=== PATIENT | female | born 1980 | race Caucasian/White ===

== ENCOUNTER 2018-03-01 15:45 | Inpatient (IN) | payer BC, OTHER ==
[2018-03-01 17:50] LABS: Basophils # (A) 0.1 k/uL (0-0.2); Basophils % (A) 0 %; Eosinophils # (A) 0.1 k/uL (0-0.7); Eosinophils % (A) 1 %; HCT 43.7 % (34.0-46.0); Lymphocytes % (A) 14 %; MCH 27.6 pg (25.0-35.0); MCHC 32.1 g/dL (31.0-37.0); Mean Platelet Volume 9.9; Monocytes # (A) 0.7 k/uL (0-1.0); Monocytes % (A) 5 %; Neutrophils # (A) 11.1 k/uL (1.3-7.7); Neutrophils % (A) 79 %; Platelet Count 265 k/uL (150-450); RBC 5.08 m/uL (3.80-5.40); RDW 12.6 % (11.5-15.5); WBC 14.1 k/uL (3.8-10.6)
[2018-03-01 17:59] LABS: ALT 19 U/L (9-52); AST 32 U/L (14-36); Alkaline Phosphatase 67 U/L (38-126); Amylase 55 U/L (30-110); Anion Gap 15 mmol/L; Blood Urea Nitrogen 14 mg/dL (7-17); Calcium 10.7 mg/dL (8.4-10.2); Carbon Dioxide 29 mmol/L (22-30); Chloride 101 mmol/L (98-107); Glucose 108 mg/dL (74-99); Lipase 119 U/L (23-300); Sodium 145 mmol/L (137-145); Total Bilirubin 1.2 mg/dL (0.2-1.3); Total Protein 8.8 g/dL (6.3-8.2)
--- NOTE | 2018-03-01 18:02 | ED ---
Abdominal Pain HPI - General Chief Complaint: Abdominal Pain Stated Complaint: vomiting,abd pain Time Seen by Provider: 03/01/18 16:59 Source: patient, RN notes reviewed, old records reviewed Mode of arrival: ambulatory Limitations: no limitations - History of Present Illness Initial Comments: 37-year-old female presents emergency department today with chief complaint of nausea, and mid abdominal pain for the past 2 days. She has a past medical history including cholecystectomy, appendectomy, hysterectomy. She reports that she had her hysterectomy there was a complication during the surgery where they had cut her aorta. She subsequently had them aorta repair. She reports this happened 17 years ago. She has mid abdominal pain and feels somewhat distended. She did report she was passing gas today. She denies any chest pain or shortness of breath. Patient's surgeon for her appendectomy and cholecystectomy with Dr. Vazquez. - Related Data Home Medications Medication Instructions Recorded Confirmed Clopidogrel Bisulfate [Plavix] 75 mg PO DAILY 03/01/18 03/01/18 Desvenlafaxine [Pristiq ER] 100 mg PO DAILY 03/01/18 03/01/18 Doxycycline Hyclate [Vibramycin] 100 mg PO BID 03/01/18 03/01/18 Esomeprazole Magnesium [NexIUM 20 mg PO DAILY 03/01/18 03/01/18 24Hr] Fexofenadine HCl [Stephanie Allergy] 180 mg PO DAILY 03/01/18 03/01/18 Ibuprofen [Motrin] 400 mg PO TID PRN 03/01/18 03/01/18 Lovastatin [Mevacor] 20 mg PO HS 03/01/18 03/01/18 busPIRone HCL 15 mg PO DAILY 03/01/18 03/01/18 Allergies Allergy/AdvReac Type Severity Reaction Status Date / Time latex Allergy Mild Rash/Hives Verified 03/01/18 17:08 Penicillins Allergy Anaphylaxis Verified 03/01/18 17:08 Sulfa (Sulfonamide Allergy Anaphylaxis Verified 03/01/18 17:08 Antibiotics) Review of Systems ROS Statement: Those systems with pertinent positive or pertinent negative responses have been documented in the HPI. ROS Other: All systems not noted in ROS Statement are negative. Past Medical History Past Medical History: Hyperlipidemia Additional Past Medical History / Comment(s): PANIC ATTACKS, migraine History of Any Multi-Drug Resistant Organisms: None Reported Past Surgical History: Appendectomy, Cholecystectomy, Hysterectomy Past Psychological History: Anxiety, Panic Disorder Smoking Status: Current every day smoker Past Alcohol Use History: Occasional Past Drug Use History: None Reported General Exam - General Exam Comments Initial Comments: Pleasant 37-year-old female. Limitations: no limitations General appearance: alert, in no apparent distress Head exam: Present: atraumatic, normocephalic, normal inspection Eye exam: Present: normal appearance, PERRL, EOMI. Absent: scleral icterus, conjunctival injection, periorbital swelling ENT exam: Present: normal exam, mucous membranes moist Neck exam: Present: normal inspection. Absent: tenderness, meningismus, lymphadenopathy Respiratory exam: Present: normal lung sounds bilaterally. Absent: respiratory distress, wheezes, rales, rhonchi, stridor Cardiovascular Exam: Present: regular rate, normal rhythm, normal heart sounds. Absent: systolic murmur, diastolic murmur, rubs, gallop, clicks GI/Abdominal exam: Present: soft, tenderness (Mid umbilical tenderness. Evidence of scarring over the abdomen.), normal bowel sounds. Absent: distended , guarding, rebound, rigid Extremities exam: Present: normal inspection, full ROM, normal capillary refill. Absent: tenderness, pedal edema, joint swelling, calf tenderness Back exam: Present: normal inspection Neurological exam: Present: alert, oriented X3, CN II-XII intact Psychiatric exam: Present: normal affect Course Vital Signs 03/01/18 03/01/18 16:20 18:36 Temperature 97.9 F Pulse Rate 116 H 89 Respiratory 20 16 Rate Blood Pressure 128/88 126/71 O2 Sat by Pulse 98 100 Oximetry Medical Decision Making - Medical Decision Making 37-year-old female presents emergency Department chief complaint of vomiting and mid abdominal pain. Multiple surgeries including appendectomy, cholecystectomy, hysterectomy. At this time Patient has evidence of leukocytosis. Blood cell count is 14,000. Patient was started on IV fluids given pain medication. CT on pelvis was completed. There is evidence of a dilated stomach and proximal small bowel consistent with mechanical small bowel instruction. She has no active vomiting any E. Likely related to adhesions from patient's multiple surgeries. Again her previous surgeon Dr. Vazquez. At this time Will admit the Patient for IV fluids, keeping her nothing by mouth. Case discussed with Dr. Jesus who accepted the admission. - Lab Data Result diagrams: 03/01/18 17:16 03/01/18 17:16 Lab Results 03/01/18 03/01/18 03/01/18 Range/Units 17:16 17:16 17:16 WBC 14.1 H (3.8-10.6) k/uL RBC 5.08 (3.80-5.40) m/uL Hgb 14.0 (11.4-16.0) gm/dL Hct 43.7 (34.0-46.0) % MCV 86.0 (80.0-100.0) fL MCH 27.6 (25.0-35.0) pg MCHC 32.1 (31.0-37.0) g/dL RDW 12.6 (11.5-15.5) % Plt Count 265 (150-450) k/uL Neutrophils % 79 % Lymphocytes % 14 % Monocytes % 5 % Eosinophils % 1 % Basophils % 0 % Neutrophils # 11.1 H (1.3-7.7) k/uL Lymphocytes # 2.0 (1.0-4.8) k/uL Monocytes # 0.7 (0-1.0) k/uL Eosinophils # 0.1 (0-0.7) k/uL Basophils # 0.1 (0-0.2) k/uL PT 10.4 (9.0-12.0) sec INR 1.1 (<1.2) APTT 26.8 (22.0-30.0) sec Sodium 145 (137-145) mmol/L Potassium 5.0 (3.5-5.1) mmol/L Chloride 101 (98-107) mmol/L Carbon Dioxide 29 (22-30) mmol/L Anion Gap 15 mmol/L BUN 14 (7-17) mg/dL Creatinine 0.76 (0.52-1.04) mg/dL Est GFR (CKD-EPI)AfAm >90 (>60 ml/min/1.73 sqM) Est GFR (CKD-EPI)NonAf >90 (>60 ml/min/1.73 sqM) Glucose 108 H (74-99) mg/dL Calcium 10.7 H (8.4-10.2) mg/dL Total Bilirubin 1.2 (0.2-1.3) mg/dL AST 32 (14-36) U/L ALT 19 (9-52) U/L Alkaline Phosphatase 67 (38-126) U/L Total Protein 8.8 H (6.3-8.2) g/dL Albumin 5.0 (3.5-5.0) g/dL Amylase 55 (30-110) U/L Lipase 119 (23-300) U/L Urine Color Urine Appearance (Clear) Urine pH (5.0-8.0) Ur Specific [place] (1.001-1.035) Urine Protein (Negative) Urine Glucose (UA) (Negative) Urine Ketones (Negative) Urine Blood (Negative) Urine Nitrite (Negative) Urine Bilirubin (Negative) Urine Urobilinogen (<2.0) mg/dL Ur Leukocyte Esterase (Negative) Urine RBC (0-5) /hpf Urine WBC (0-5) /hpf Ur Squamous Epith Cells (0-4) /hpf Urine Mucus (None) /hpf 03/01/18 Range/Units 19:02 WBC (3.8-10.6) k/uL RBC (3.80-5.40) m/uL Hgb (11.4-16.0) gm/dL Hct (34.0-46.0) % MCV (80.0-100.0) fL MCH (25.0-35.0) pg MCHC (31.0-37.0) g/dL RDW (11.5-15.5) % Plt Count (150-450) k/uL Neutrophils % % Lymphocytes % % Monocytes % % Eosinophils % % Basophils % % Neutrophils # (1.3-7.7) k/uL Lymphocytes # (1.0-4.8) k/uL Monocytes # (0-1.0) k/uL Eosinophils # (0-0.7) k/uL Basophils # (0-0.2) k/uL PT (9.0-12.0) sec INR (<1.2) APTT (22.0-30.0) sec Sodium (137-145) mmol/L Potassium (3.5-5.1) mmol/L Chloride (98-107) mmol/L Carbon Dioxide (22-30) mmol/L Anion Gap mmol/L BUN (7-17) mg/dL Creatinine (0.52-1.04) mg/dL Est GFR (CKD-EPI)AfAm (>60 ml/min/1.73 sqM) Est GFR (CKD-EPI)NonAf (>60 ml/min/1.73 sqM) Glucose (74-99) mg/dL Calcium (8.4-10.2) mg/dL Total Bilirubin (0.2-1.3) mg/dL AST (14-36) U/L ALT (9-52) U/L Alkaline Phosphatase (38-126) U/L Total Protein (6.3-8.2) g/dL Albumin (3.5-5.0) g/dL Amylase (30-110) U/L Lipase (23-300) U/L Urine Color Yellow Urine Appearance Clear (Clear) Urine pH 6.5 (5.0-8.0) Ur Specific [place] >1.050 H (1.001-1.035) Urine Protein 1+ H (Negative) Urine Glucose (UA) Negative (Negative) Urine Ketones 2+ H (Negative) Urine Blood Trace H (Negative) Urine Nitrite Negative (Negative) Urine Bilirubin Negative (Negative) Urine Urobilinogen 2.0 (<2.0) mg/dL Ur Leukocyte Esterase Negative (Negative) Urine RBC 3 (0-5) /hpf Urine WBC 1 (0-5) /hpf Ur Squamous Epith Cells 4 (0-4) /hpf Urine Mucus Rare H (None) /hpf - Radiology Data Radiology results: report reviewed Mild ascites. There are dilated fluid-filled loops of proximal small bowel and also dilated stomach consistent with small bowel instruction. Disposition Clinical Impression: Small bowel obstruction Disposition: ADMITTED IP TO THIS [facility] Condition: Good Is patient prescribed a controlled substance at d/c from ED?: No Referrals: Niels Guevara MD [Primary Care Provider] - 1-2 days Time of Disposition: 18:49
[2018-03-01 18:03] LABS: INR 1.1 (<1.2); Partial Thromboplastin Time 26.8 sec (22.0-30.0); Prothrombin Time 10.4 sec (9.0-12.0)
--- NOTE | 2018-03-01 18:22 | CT ---
EXAMINATION TYPE: CT abdomen pelvis w con DATE OF EXAM: 03/01/2018 COMPARISON: None HISTORY: Periumbilical pain, nausea, and vomiting. CT DLP: 1040 mGycm Automated exposure control for dose reduction was used. TECHNIQUE: Helical acquisition of images was performed from the lung bases through the pelvis. CONTRAST: Performed without Oral Contrast and with IV Contrast, patient injected with 100 mL of Isovue 300. FINDINGS: Lung bases are clear. There is no pleural effusion. Heart appears normal. There is no pericardial eff usion. Bile ducts are not dilated. There is a small lipoma in the subdiaphragmatic region at the superior ri ght lobe of the liver. There are clips from cholecystectomy. Bile ducts are not dilated. Stomach is large with fluid. Spleen appears normal. There is no pancreatic mass. There is no adrenal mass. Kidneys show satisfactory contrast opacification. There is no hydronephrosi s. Ureters are not dilated. There is no retroperitoneal adenopathy. There is no mesenteric adenopathy . There is free fluid in the pelvis. There is no inguinal hernia. There is no umbilical hernia. There are multiple dilated proximal small bowel loops with fluid. These measure up to almost 3 cm. Transit ion point is not identified. The large bowel appears normal. There is hysterectomy. Bladder is almost empty. I see no bony destructive process. Lumbar spine is intact. The abdominal soft tissues are unr emarkable. Distal small bowel is not dilated. Appendix is not seen. There is no sign of appendicitis. There are surgical clips in the region of the lateral cecum. IMPRESSION: THERE IS MILD ASCITES. THERE ARE DILATED FLUID-FILLED LOOPS OF PROXIMAL SMALL BOWEL ALSO DILATED STOM ACH CONSISTENT WITH MECHANICAL SMALL BOWEL OBSTRUCTION.
[2018-03-01] MEDS ORDERED: MORPHINE SULFATE 4 MG/ML SYRINGE IVP STA (18:42)
[2018-03-01] MEDS ORDERED: SODIUM CHLORIDE 0.9% 1,000 ML IV ONE (18:43)
[2018-03-01] MEDS ORDERED: ONDANSETRON 4 MG/2 ML VIAL IVP STA (18:43)
[2018-03-01] MEDS ORDERED: KETOROLAC 30 MG/ML 1 ML VIAL IVP STA (18:43)
[2018-03-01] MEDS: SODIUM CHLORIDE 0.9% 1,000 ML IV SCH (18:50)
[2018-03-01 19:09] LABS: Appearance,Urine Clear (Clear); Bilirubin,Urine Negative (Negative); Blood,Urine Trace (Negative); Color,Urine Yellow; Glucose,Urine (UA) Negative (Negative); Ketones,Urine 2+ (Negative); Leukocyte Esterase,Urine Negative (Negative); Mucus,Urine Rare /hpf; Nitrite,Urine Negative (Negative); PH, Urine 6.5 (5.0-8.0); Protein,Urine 1+ (Negative); RBC,Urine 3 /hpf (0-5); Squamous Epithelial Cell,Urine 4 /hpf (0-4); WBC,Urine 1 /hpf (0-5)
[2018-03-01 19:10] LABS: Specific Gravity,Urine >1.050 (1.001-1.035)
[2018-03-01] MEDS ORDERED: MORPHINE SULFATE 4 MG/ML SYRINGE IV PRN (19:31)
[2018-03-01] MEDS ORDERED: NALOXONE 0.4 MG/ML 1 ML VIAL IV PRN (19:31)
[2018-03-01] MEDS ORDERED: ONDANSETRON 4 MG/2 ML VIAL IVP PRN (19:31)
[2018-03-01] MEDS ORDERED: KETOROLAC 30 MG/ML 1 ML VIAL IVP PRN (19:31)
[2018-03-01] MEDS ORDERED: LORazepam 2 MG/ML INJ IV PRN (19:31)
[2018-03-02] MEDS: SODIUM CHLORIDE 0.9% 1,000 ML IV SCH ×2 (06:11→13:44)
[2018-03-02] MEDS: PANTOPRAZOLE 40 MG/10 ML VIAL IV SCH (08:13)
[2018-03-02 08:47] LABS: Basophils % (A) 0 %; Eosinophils # (A) 0.3 k/uL (0-0.7); Eosinophils % (A) 2 %; HCT 38.6 % (34.0-46.0); HGB 12.3 gm/dL (11.4-16.0); Lymphocytes # (A) 2.7 k/uL (1.0-4.8); Lymphocytes % (A) 21 %; MCH 27.5 pg (25.0-35.0); MCHC 31.8 g/dL (31.0-37.0); MCV 86.5 fL (80.0-100.0); Mean Platelet Volume 10.6; Monocytes # (A) 0.7 k/uL (0-1.0); Monocytes % (A) 5 %; Neutrophils # (A) 8.8 k/uL (1.3-7.7); Neutrophils % (A) 70 %; Platelet Count 211 k/uL (150-450); RBC 4.46 m/uL (3.80-5.40); RDW 12.8 % (11.5-15.5); WBC 12.6 k/uL (3.8-10.6)
--- NOTE | 2018-03-02 08:58 | P.GSHP ---
<Vane Sewell - Last Filed: 03/02/18 08:35> History of Present Illness H&P Date: 03/02/18 37-year-old female who presents to the emergency room with a chief complaint of developing a sudden onset nausea vomiting mid abdominal pain onset 2 days prior. Patient stated that she finished her shift where she works to 2pm to 2 am went home felt nauseated started vomiting with cramping sharp midabdominal pain. Patient stated the pain was unbearable. Patient stated there was no change in bowel habits her last bowel movement was 24 hours ago is passing gas stated felt bloated white count in the emergency room 14,000. CAT scan abdomen pelvis obtained in the emergency room reviewing the report showed evidence of a dilated stomach and proximal small bowel consistent with mechanical small bowel obstruction. Does have a history of MTHFR gene mutation on Plavix Patient has a significant past surgical history of having an appendectomy, cholecystectomy done several years ago at [facility] by Dr. Live. In addition had a hysterectomy greater than 17 years ago apparently according to the patient she had to have an aortic repair done. Patient has several well- healed surgical scars to the abdomen. Patient currently is stating that the abdominal discomfort has significantly improved. No change in bowel habits. Currently is stating a nausea sensation but no active emesis - Review of Systems Comment: Essentially unremarkable except as mentioned in the present illness Past Medical History Past Medical History: Hyperlipidemia Additional Past Medical History / Comment(s): PANIC ATTACKS, migraine History of Any Multi-Drug Resistant Organisms: None Reported Past Surgical History: Appendectomy, Section, Cholecystectomy, Hysterectomy Past Anesthesia/Blood Transfusion Reactions: No Reported Reaction Past Psychological History: Anxiety, Panic Disorder Smoking Status: Current every day smoker Past Alcohol Use History: Occasional Past Drug Use History: None Reported - Past Family History Mother Family Medical History: Myocardial Infarction ([place]) Father Family Medical History: No Reported History Medications and Allergies Home Medications Medication Instructions Recorded Confirmed Type Clopidogrel Bisulfate [Plavix] 75 mg PO DAILY 03/01/18 03/01/18 History Desvenlafaxine [Pristiq ER] 100 mg PO DAILY 03/01/18 03/01/18 History Doxycycline Hyclate [Vibramycin] 100 mg PO BID 03/01/18 03/01/18 History Esomeprazole Magnesium [NexIUM 20 mg PO DAILY 03/01/18 03/01/18 History 24Hr] Fexofenadine HCl [Stephanie Allergy] 180 mg PO DAILY 03/01/18 03/01/18 History Ibuprofen [Motrin] 400 mg PO TID PRN 03/01/18 03/01/18 History Lovastatin [Mevacor] 20 mg PO HS 03/01/18 03/01/18 History busPIRone HCL 15 mg PO DAILY 03/01/18 03/01/18 History Allergies Allergy/AdvReac Type Severity Reaction Status Date / Time latex Allergy Mild Rash/Hives Verified 03/01/18 17:08 Penicillins Allergy Anaphylaxis Verified 03/01/18 17:08 Sulfa (Sulfonamide Allergy Anaphylaxis Verified 03/01/18 17:08 Antibiotics) Surgical - Exam Vital Signs Temp Pulse Resp BP Pulse Ox 97.9 F 116 H 20 128/88 98 03/01/18 16:20 03/01/18 16:20 03/01/18 16:20 03/01/18 16:20 03/01/18 16:20 GENERAL APPEARANCE: 37-year-old female patient is alert, oriented X 3 , in no acute distress. States abdominal pain is improving VITAL SIGNS: Reviewed HEENT: Head is normocephalic and atraumatic. Pupils are equal and reactive. The nares are patent. Oropharynx is clear without lesions. NECK: Supple without lymphadenopathy. Traches midline. HEART: S1, S2. Regular rate and rhythm. No murmur noted denying chest pain LUNGS: No crackles or wheezes are heard. Adequate air movement bilaterally and room air ABDOMEN: Several well-healed surgical scars Soft, mild tenderness mid umbilical area area nondistended with good bowel sounds. No peritoneal signs. No palpable organomegaly or masses. EXTREMITIES: Normal skin color and turgor. No cyanosis, rash, ulceration, clubbing or edema. Radial pedal pulses are 2/4 bilaterally. NEUROLOGICAL: No focal deficits. Strength and sensation are grossly intact. Results - Labs 03/01/18 17:16 03/01/18 17:16 Abnormal Lab Results - Last 24 Hours (Table) 03/01/18 03/01/18 03/01/18 Range/Units 17:16 17:16 19:02 WBC 14.1 H (3.8-10.6) k/uL Neutrophils # 11.1 H (1.3-7.7) k/uL Glucose 108 H (74-99) mg/dL Calcium 10.7 H (8.4-10.2) mg/dL Total Protein 8.8 H (6.3-8.2) g/dL Ur Specific [place] >1.050 H (1.001-1.035) Urine Protein 1+ H (Negative) Urine Ketones 2+ H (Negative) Urine Blood Trace H (Negative) Urine Mucus Rare H (None) /hpf Diabetes panel 03/01/18 Range/Units 17:16 Sodium 145 (137-145) mmol/L Potassium 5.0 (3.5-5.1) mmol/L Chloride 101 (98-107) mmol/L Carbon Dioxide 29 (22-30) mmol/L BUN 14 (7-17) mg/dL Creatinine 0.76 (0.52-1.04) mg/dL Glucose 108 H (74-99) mg/dL Calcium 10.7 H (8.4-10.2) mg/dL AST 32 (14-36) U/L ALT 19 (9-52) U/L Alkaline Phosphatase 67 (38-126) U/L Total Protein 8.8 H (6.3-8.2) g/dL Albumin 5.0 (3.5-5.0) g/dL Calcium panel 03/01/18 Range/Units 17:16 Calcium 10.7 H (8.4-10.2) mg/dL Albumin 5.0 (3.5-5.0) g/dL Pituitary panel 03/01/18 Range/Units 17:16 Sodium 145 (137-145) mmol/L Potassium 5.0 (3.5-5.1) mmol/L Chloride 101 (98-107) mmol/L Carbon Dioxide 29 (22-30) mmol/L BUN 14 (7-17) mg/dL Creatinine 0.76 (0.52-1.04) mg/dL Glucose 108 H (74-99) mg/dL Calcium 10.7 H (8.4-10.2) mg/dL Adrenal panel 03/01/18 Range/Units 17:16 Sodium 145 (137-145) mmol/L Potassium 5.0 (3.5-5.1) mmol/L Chloride 101 (98-107) mmol/L Carbon Dioxide 29 (22-30) mmol/L BUN 14 (7-17) mg/dL Creatinine 0.76 (0.52-1.04) mg/dL Glucose 108 H (74-99) mg/dL Calcium 10.7 H (8.4-10.2) mg/dL Total Bilirubin 1.2 (0.2-1.3) mg/dL AST 32 (14-36) U/L ALT 19 (9-52) U/L Alkaline Phosphatase 67 (38-126) U/L Total Protein 8.8 H (6.3-8.2) g/dL Albumin 5.0 (3.5-5.0) g/dL Assessment and Plan Assessment: Impression Present on admission nausea vomiting mid abdominal pain suspect due to mechanical small bowel obstruction History of an appendectomy cholecystectomy hysterectomy aortic repair History of MTHFR on Plavix Present on admission leukocytosis Mild hyperkalemia potassium 5 Plan Continue IV fluid for hydration Hold Plavix keep nothing by mouth except ice chips DVT and GI prophylaxis Pain control Further surgical recommendations pending The above impression and plan of care have been discussed and directed by signing physician. Vane Sewell nurse practitioner acting as scribe for signing physician. <Donavan Jesus - Last Filed: 03/02/18 17:03> Surgical - Exam Vital Signs Temp Pulse Resp BP Pulse Ox 97.9 F 116 H 20 128/88 98 03/01/18 16:20 03/01/18 16:20 03/01/18 16:20 03/01/18 16:20 03/01/18 16:20 Results - Labs 03/02/18 08:22 03/02/18 08:27 Abnormal Lab Results - Last 24 Hours (Table) 03/01/18 03/01/18 03/01/18 Range/Units 17:16 17:16 19:02 WBC 14.1 H (3.8-10.6) k/uL Neutrophils # 11.1 H (1.3-7.7) k/uL Glucose 108 H (74-99) mg/dL Calcium 10.7 H (8.4-10.2) mg/dL Total Protein 8.8 H (6.3-8.2) g/dL Ur Specific [place] >1.050 H (1.001-1.035) Urine Protein 1+ H (Negative) Urine Ketones 2+ H (Negative) Urine Blood Trace H (Negative) Urine Mucus Rare H (None) /hpf 03/02/18 Range/Units 08:22 WBC 12.6 H (3.8-10.6) k/uL Neutrophils # 8.8 H (1.3-7.7) k/uL Glucose (74-99) mg/dL Calcium (8.4-10.2) mg/dL Total Protein (6.3-8.2) g/dL Ur Specific [place] (1.001-1.035) Urine Protein (Negative) Urine Ketones (Negative) Urine Blood (Negative) Urine Mucus (None) /hpf Diabetes panel 03/01/18 03/02/18 Range/Units 17:16 08:27 Sodium 145 143 (137-145) mmol/L Potassium 5.0 3.6 (3.5-5.1) mmol/L Chloride 101 105 (98-107) mmol/L Carbon Dioxide 29 30 (22-30) mmol/L BUN 14 15 (7-17) mg/dL Creatinine 0.76 0.72 (0.52-1.04) mg/dL Glucose 108 H 87 (74-99) mg/dL Calcium 10.7 H 8.8 (8.4-10.2) mg/dL AST 32 20 (14-36) U/L ALT 19 19 (9-52) U/L Alkaline Phosphatase 67 46 (38-126) U/L Total Protein 8.8 H 6.4 (6.3-8.2) g/dL Albumin 5.0 3.6 (3.5-5.0) g/dL Calcium panel 03/01/18 03/02/18 Range/Units 17:16 08:27 Calcium 10.7 H 8.8 (8.4-10.2) mg/dL Albumin 5.0 3.6 (3.5-5.0) g/dL Pituitary panel 03/01/18 03/02/18 Range/Units 17:16 08:27 Sodium 145 143 (137-145) mmol/L Potassium 5.0 3.6 (3.5-5.1) mmol/L Chloride 101 105 (98-107) mmol/L Carbon Dioxide 29 30 (22-30) mmol/L BUN 14 15 (7-17) mg/dL Creatinine 0.76 0.72 (0.52-1.04) mg/dL Glucose 108 H 87 (74-99) mg/dL Calcium 10.7 H 8.8 (8.4-10.2) mg/dL Adrenal panel 03/01/18 03/02/18 Range/Units 17:16 08:27 Sodium 145 143 (137-145) mmol/L Potassium 5.0 3.6 (3.5-5.1) mmol/L Chloride 101 105 (98-107) mmol/L Carbon Dioxide 29 30 (22-30) mmol/L BUN 14 15 (7-17) mg/dL Creatinine 0.76 0.72 (0.52-1.04) mg/dL Glucose 108 H 87 (74-99) mg/dL Calcium 10.7 H 8.8 (8.4-10.2) mg/dL Total Bilirubin 1.2 0.9 (0.2-1.3) mg/dL AST 32 20 (14-36) U/L ALT 19 19 (9-52) U/L Alkaline Phosphatase 67 46 (38-126) U/L Total Protein 8.8 H 6.4 (6.3-8.2) g/dL Albumin 5.0 3.6 (3.5-5.0) g/dL Assessment and Plan Assessment: As above. Patient with presentation suggesting partial small bowel obstruction. She is having daily bowel movements. Her nausea and vomiting have definitely improved since yesterday. Pain is likewise improved. Repeat x- rays are pending at this time. We'll review those. Keep nothing by mouth at this time. We'll try to treat this suspected bowel obstruction nonoperatively particularly given the numerous abdominal surgeries she has had in the past.
[2018-03-02 09:04] LABS: ALT 19 U/L (9-52); AST 20 U/L (14-36); Albumin 3.6 g/dL (3.5-5.0); Alkaline Phosphatase 46 U/L (38-126); Anion Gap 8 mmol/L; Blood Urea Nitrogen 15 mg/dL (7-17); Calcium 8.8 mg/dL (8.4-10.2); Carbon Dioxide 30 mmol/L (22-30); Chloride 105 mmol/L (98-107); Glucose 87 mg/dL (74-99); Potassium 3.6 mmol/L (3.5-5.1); Sodium 143 mmol/L (137-145); Total Bilirubin 0.9 mg/dL (0.2-1.3); Total Protein 6.4 g/dL (6.3-8.2)
[2018-03-02] MEDS: busPIRone HCl 5 MG TAB PO SCH (13:38)
[2018-03-02] MEDS: ENOXAPARIN 40 MG/0.4 ML SYRINGE SQ SCH (13:38)
[2018-03-02] MEDS: NICOTINE 21MG/24HR PATCH TRANSDERM SCH (13:38)
[2018-03-02] MEDS: DESVENLAFAXINE SUCCINATE 50 MG TAB.ER.24H PO SCH (13:38)
--- NOTE | 2018-03-02 15:05 | CONS ---
CONSULTATION DATE OF CONSULTATION: 03/02/2018 REASON FOR CONSULTATION: Medical management requested by Dr. Jesus. CONSULTATIONS: A pleasant 37-year-old patient of Dr. Guevara. Chronic stable medical conditions include hyperlipidemia, GERD, MTHFR mutation for which she is on Plavix. Patient yesterday morning started off with persistent nausea, vomiting, multiple episodes of abdominal pain rather severe. Denies any fever, chills, presented has not had a bowel movement since then. This morning slight nausea. No further vomiting. Abdominal pain is better but still present. Has not passed any flatus. CT scan of the abdomen did show small-bowel obstruction for which she was admitted. The patient is allowed ice chips. REVIEW OF SYSTEMS: CONSTITUTIONAL: Tired. HEENT: None. RESPIRATORY: None. CARDIOVASCULAR: None. GASTROINTESTINAL: As above. GENITOURINARY: None. MUSCULOSKELETAL: None. DERMATOLOGICAL: None. HEMATOLOGIC: None. LYMPHATIC: None. PSYCHIATRY: None. NEUROLOGICAL: None. PAST MEDICAL HISTORY: Hyperlipidemia, panic attacks, GERD, MTHFR mutation, migraines. PAST SURGICAL HISTORY: Appendectomy, , cholecystectomy, hysterectomy. SOCIAL HISTORY: Smokes less than a pack a day, . Works as a [employer] for [employer], no alcohol. FAMILY HISTORY: Myocardial infarction. HOME MEDICATIONS: BuSpar 50 mg p.o. daily, Mevacor 20 mg q.h.s., Motrin 400 mg t.i.d., p.r.n., Stephanie 180 mg a day, Nexium 20 mg a day, Vibramycin 100 mg b.i.d., Pristiq 100 mg a day, Plavix 75 mg a day. ALLERGIES: To LATEX, PENICILLIN, SULFUR. PHYSICAL EXAMINATION: Temperature 97.5, pulse 82, respiration 16, blood pressure 101/56, pulse ox 94% on room air. GENERAL APPEARANCE: Average build, lying in bed, tired-appearing. EYES: Pupils equal, conjunctivae normal. HEENT: External appearance of nose and ear normal, oral cavity normal. NECK: JVD not raised. Mass not palpable. RESPIRATORY: Effort normal. Lungs are clear. CARDIOVASCULAR: First and second sounds, no edema. ABDOMEN: Central tenderness. No guarding or rigidity. Bowel sounds are sluggish. Liver and spleen not palpable. LYMPHATIC: No lymph node palpable in neck or axillae. PSYCHIATRY: Alert and oriented x3. Mood and affect normal. NEUROLOGICAL: Pupils equal. Cranial nerves grossly intact. Power and sensation grossly intact. INVESTIGATIONS: White count 14.1, hemoglobin 14, potassium 5, BUN and creatinine is normal. CT scan of the abdomen and pelvis scattered to small about the proximal small bowel. ASSESSMENT: 1. Acute small-bowel obstruction. 2. Hyperlipidemia. 3. Gastroesophageal reflux disease. 4. MTHFR mutation. 5. Chronic nicotine dependence, patient is a cigarette smoker. PLAN: Home medications will be resumed with ice chips. Will repeat a abdominal plain x-ray and give a nicotine patch. Care was discussed with the patient. Encouraged the patient to be out of bed. Lovenox for DVT prophylaxis. Thank you Dr. Jesus. MAXIMUS / VIC: [id number] /
--- NOTE | 2018-03-02 20:15 | XR ---
EXAMINATION TYPE: XR abdomen 3V DATE OF EXAM: 03/02/2018 CLINICAL HISTORY: Mid abdominal pain TECHNIQUE: Upright abdomen and 2 supine views of the abdomen and pelvis obtained COMPARISON: None. FINDINGS: The visualized lung bases and pleural spaces are negative. No pneumoperitoneum. No pneumatosis. Surgical clips noted in the right lower quadrant. There is mild dilation of several loops of small nhung wel in the upper quadrants and mid abdomen, associated with gas fluid levels on the upright view, hav ing the radiographic appearance of mild small bowel obstruction. The colon shows prominent volume of stool throughout its extent, the exception of the rectosigmoid. No definite acute skeletal or soft tissue findings. IMPRESSION: MILD SBO.
[2018-03-02] MEDS ORDERED: ATORVASTATIN 10 MG TAB PO SCH (21:00)
[2018-03-03] MEDS: SODIUM CHLORIDE 0.9% 1,000 ML IV SCH ×4 (00:59→18:46)
[2018-03-03 01:41] VITALS: RESP 16
[2018-03-03 07:49] LABS: Basophils % (A) 0 %; Eosinophils # (A) 0.3 k/uL (0-0.7); Eosinophils % (A) 4 %; HCT 33.4 % (34.0-46.0); HGB 10.5 gm/dL (11.4-16.0); Lymphocytes # (A) 2.4 k/uL (1.0-4.8); Lymphocytes % (A) 26 %; MCH 27.9 pg (25.0-35.0); MCHC 31.5 g/dL (31.0-37.0); MCV 88.5 fL (80.0-100.0); Mean Platelet Volume 10.1; Monocytes # (A) 0.5 k/uL (0-1.0); Monocytes % (A) 6 %; Neutrophils # (A) 5.5 k/uL (1.3-7.7); Neutrophils % (A) 62 %; Platelet Count 183 k/uL (150-450); RBC 3.78 m/uL (3.80-5.40); RDW 12.5 % (11.5-15.5); WBC 8.9 k/uL (3.8-10.6)
[2018-03-03 08:00] LABS: Anion Gap 6 mmol/L; Blood Urea Nitrogen 11 mg/dL (7-17); Carbon Dioxide 23 mmol/L (22-30); Chloride 111 mmol/L (98-107); Glucose 72 mg/dL (74-99); Potassium 3.8 mmol/L (3.5-5.1); Sodium 140 mmol/L (137-145)
[2018-03-03] MEDS: NICOTINE 21MG/24HR PATCH TRANSDERM SCH (08:51)
[2018-03-03] MEDS: busPIRone HCl 5 MG TAB PO SCH (08:59)
[2018-03-03] MEDS: DESVENLAFAXINE SUCCINATE 50 MG TAB.ER.24H PO SCH (08:59)
[2018-03-03] MEDS: PANTOPRAZOLE 40 MG/10 ML VIAL IV SCH (09:00)
[2018-03-03] MEDS: ENOXAPARIN 40 MG/0.4 ML SYRINGE SQ SCH (09:00)
--- NOTE | 2018-03-03 09:58 | P.PN ---
<DonatoCeceliaVane M - Last Filed: 03/03/18 09:54> Subjective Progress Note Date: 03/03/18 37-year-old female seen at the bedside patient states there is a slight improvement with less abdominal discomfort but continues to have right lower quadrant tenderness. States no bowel movement. States no nausea no vomiting. Tolerating ice chips abdomen is soft with mild tenderness to the right lower quadrant. White count down to 8.9 electrolytes within normal limits afebrile on room air sats are 95%. Objective - Vital Signs Vital signs: Vital Signs Temp 98.3 F 03/03/18 07:39 Pulse 80 03/03/18 07:39 Resp 16 03/03/18 07:39 BP 113/71 03/03/18 07:39 Pulse Ox 94 L 03/03/18 07:39 Intake & Output 03/02/18 03/03/18 03/03/18 18:59 06:59 18:59 Intake Total 1240 1875 Balance 1240 1875 Intake: Intake, IV Titration 1000 1875 Amount Sodium Chloride 0.9% 1, 1000 1875 000 ml @ 150 mls/hr IV . Q6H40M [facility] Rx#:[id number] Oral 240 Other: Voiding Method Toilet # Voids 2 3 - Exam Physical exam 47-year-old female resting comfortably in bed appears in no acute distress Lungs adequate air movement bilaterally on room air Heart S1-S2 audible regular Abdomen nondistended mild tenderness with palpitation to the right lower quadrant reports no nausea vomiting active bowel tones no stool tolerating ice chips Extremity no edema to the bilateral lower extremities - Labs CBC & Chem 7: 03/03/18 06:51 03/03/18 06:51 Labs: Abnormal Lab Results - Last 24 Hours (Table) 03/03/18 03/03/18 Range/Units 06:51 06:51 RBC 3.78 L (3.80-5.40) m/uL Hgb 10.5 L (11.4-16.0) gm/dL Hct 33.4 L (34.0-46.0) % Chloride 111 H (98-107) mmol/L Glucose 72 L (74-99) mg/dL Calcium 8.0 L (8.4-10.2) mg/dL Assessment and Plan Assessment: Impression Present on admission nausea vomiting mid abdominal pain suspect due to mechanical small bowel obstruction History of an appendectomy cholecystectomy hysterectomy aortic repair History of MTHFR on Plavix Present on admission leukocytosis Mild hyperkalemia potassium 5 Plan Continue to follow suspect mild small bowel obstruction will treat conservatively for now Continue IV fluid for hydration Hold Plavix keep nothing by mouth except ice chips DVT and GI prophylaxis Pain control Further surgical recommendations pending The above impression and plan of care have been discussed and directed by signing physician. Vane Sewell nurse practitioner acting as scribe for signing physician. <Donavan Jesus - Last Filed: 03/03/18 12:46> Objective - Vital Signs Vital signs: Vital Signs Temp 98.3 F 03/03/18 07:39 Pulse 80 03/03/18 07:39 Resp 16 03/03/18 07:39 BP 113/71 03/03/18 07:39 Pulse Ox 94 L 03/03/18 07:39 Intake & Output 03/02/18 03/03/18 03/03/18 18:59 06:59 18:59 Intake Total 1240 1875 Balance 1240 1875 Intake: Intake, IV Titration 1000 1875 Amount Sodium Chloride 0.9% 1, 1000 1875 000 ml @ 150 mls/hr IV . Q6H40M [facility] Rx#:[id number] Oral 240 Other: Voiding Method Toilet # Voids 2 3 - Labs CBC & Chem 7: 03/03/18 06:51 03/03/18 06:51 Labs: Abnormal Lab Results - Last 24 Hours (Table) 03/03/18 03/03/18 Range/Units 06:51 06:51 RBC 3.78 L (3.80-5.40) m/uL Hgb 10.5 L (11.4-16.0) gm/dL Hct 33.4 L (34.0-46.0) % Chloride 111 H (98-107) mmol/L Glucose 72 L (74-99) mg/dL Calcium 8.0 L (8.4-10.2) mg/dL Assessment and Plan Assessment: Patient doing better today. She is hungry. Pain she believes is related to her heparin shots. No nausea or vomiting. She is passing flatus but no bowel movement today. Will increase diet to full liquids. If tolerates possible discharge today or tomorrow.
[2018-03-03 14:48] VITALS: BP 105/63; PULSE 77; TEMP 98.2
--- NOTE | 2018-03-04 00:05 | PN ---
PROGRESS NOTE DATE OF SERVICE: 03/03/2018 PRESENTING COMPLAINT: Abdominal pain. INTERVAL HISTORY: Patient was admitted with small-bowel obstruction. Saw this patient earlier today. Feeling much better; had passed some flatus, has been out of bed. No further nausea or vomiting. Diet was advanced by Surgery. No fever or chills. REVIEW OF SYSTEMS: Done for constitutional, cardiovascular, GI, pulmonary; relevant findings as above. CURRENT MEDICATIONS: Reviewed, including IV fluids. PHYSICAL EXAMINATION: Temperature 98.3, pulse 80, respiration 16, blood pressure 113/71, pulse ox 94% on room air. GENERAL APPEARANCE: Sitting up. Comfortable. EYES: Pupils equal. Conjunctivae normal. HEENT: External appearance of nose and ears normal. Oral cavity normal. NECK: JVD not raised. Mass not palpable. RESPIRATORY: Effort normal. Lungs are clear. CARDIOVASCULAR: First and second sounds normal. No edema. ABDOMEN: Upper abdominal tenderness. No guarding or rigidity. Bowel sounds are hyperactive. PSYCHIATRY: Alert and oriented x3. Mood and affect normal. INVESTIGATIONS: White count 8.9, hemoglobin 10.5 potassium 3.8. Abdominal x-ray from yesterday showed mild SBO. ASSESSMENT: 1. Acute small-bowel obstruction with some clinical improvement. Patient has been passing flatus. 2. Hyperlipidemia. 3. Gastroesophageal reflux disease. 4. MTHFR mutation. 5. Chronic nicotine dependence. Patient is a cigarette smoker. PLAN: Continue current medication and treatment plan. Further plan as per Surgery. Care was discussed with the patient and her . Patient encouraged to ambulate and use chewing gum. MMODL / IJN: [id number] /
== END 2018-03-03 19:31 | disposition home or self-care (01) | DRG 389 ==
LOC: EC 15:45 → 3SUR 19:31
PROVIDERS: ADMIT Surgery; ATTEND Surgery
DX: K56.600 Partial intestinal obstruction, unspecified as to cause (principal); E72.12 Methylenetetrahydrofolate reductase deficiency; D72.829 Elevated white blood cell count, unspecified; E78.5 Hyperlipidemia, unspecified; E87.5 Hyperkalemia; F17.210 Nicotine dependence, cigarettes, uncomplicated; F41.0 Panic disorder [episodic paroxysmal anxiety]; K21.9 Gastro-esophageal reflux disease without esophagitis; G43.909 Migraine, unspecified, not intractable, without status migrainosus; Z79.02 Long term (current) use of antithrombotics/antiplatelets; Z79.899 Other long term (current) drug therapy; Z90.710 Acquired absence of both cervix and uterus; Z90.49 Acquired absence of other specified parts of digestive tract; Z88.0 Allergy status to penicillin; Z88.2 Allergy status to sulfonamides; Z91.040 Latex allergy status; Z82.49 Family history of ischemic heart disease and other diseases of the circulatory system
CPT/HCPCS: 36415; 74019; 74177; 80048; 80053; 81001; 82150; 83690; 85025; 85610; 85730; 96361; 96374; 96375; 99285

== ENCOUNTER → 2018-03-29 | Outpatient (CLI) | payer BC ==
--- NOTE | 2018-03-29 11:22 | FL ---
EXAMINATION TYPE: FL small bowel follow through DATE OF EXAM: 03/29/2018 CLINICAL HISTORY: Lower abdominal pain constipation. History of recent bowel obstruction. TECHNIQUE: A single contrast small bowel follow through is performed utilizing barium. 12 seconds of fluoroscopy time was utilized with 18 images saved. COMPARISON: None FINDINGS: Pet Feeder image of the abdomen shows cholecystectomy clips within the right upper quadrant and a moderate colonic stool burden. Air is seen within the rectum. No dilated large or small bowel. The small bowel study shows normal transit to the colon in less than 125 minutes. There is a normal mucosal fold pattern throughout the small bowel. There is no evidence of any stricture or filling de fect noted. There is an incidentally noted small bowel diverticulum from the distal third portion of the duodenum. The terminal ileum is spotted and appears unremarkable. Real-time visualization of con trast transit through the terminal ileum into the colon with seen under fluoroscopy. IMPRESSION: 1. No evidence of bowel obstruction. Normal small bowel transit time. 2. Incidentally noted small duodenal diverticulum.
== END | disposition home or self-care (01) ==
LOC: RADFLMAIN 07:51
PROVIDERS: ATTEND Surgery
DX: K57.10 Diverticulosis of small intestine without perforation or abscess without bleeding (principal)
CPT/HCPCS: 74250

== ENCOUNTER → 2021-04-23 | Outpatient (CLI) | payer MEDICAID ==
[2021-04-23 19:26] LABS: Basophils # (A) 0.09 X 10*3/uL (0.00-0.10); Basophils % (A) 0.8 %; Eosinophils # (A) 0.59 X 10*3/uL (0.04-0.35); Eosinophils % (A) 5.5 %; HCT 42.3 % (37.2-46.3); HGB 13.4 g/dL (12.0-15.0); Lymphocytes # (A) 2.85 X 10*3/uL (0.90-5.00); Lymphocytes % (A) 26.6 %; MCH 28.1 pg (27.0-32.0); MCHC 31.7 g/dL (32.0-37.0); MCV 88.7 fL (80.0-97.0); Mean Platelet Volume 14.5 fL (9.5-12.2); Monocytes # (A) 0.72 X 10*3/uL (0.20-1.00); Monocytes % (A) 6.7 %; Neutrophils # (A) 6.42 X 10*3/uL (1.80-7.70); Neutrophils % (A) 60.1 %; Platelet Count 243 X 10*3/uL (140-440); RBC 4.77 X 10*6/uL (4.10-5.20); RDW 12.9 % (11.5-14.5)
[2021-04-23 22:09] LABS: African American GFR (CKD) 105.1 (60.0-200.0); Albumin 4.9 g/dL (3.8-4.9); Albumin/Globulin Ratio 1.73 (1.60-3.17); Anion Gap 15.7 mmol/L (4.00-12.00); BUN/Creat Ratio 5.17 Ratio (12.00-20.00); Blood Urea Nitrogen 4.2 mg/dL (9.0-27.0); Carbon Dioxide 22.5 mmol/L (21.6-31.8); Globulin 2.9 g/dL (1.6-3.3); Non-African American GFR(CKD) 90.7 (60.0-200.0); Potassium 4.4 mmol/L (3.5-5.5); Total Bilirubin 0.3 mg/dL (0.30-1.20); Total Protein 7.8 g/dL (6.2-8.2)
== END | disposition home or self-care (01) ==
LOC: LABWHC1 13:12
PROVIDERS: ATTEND Family Medicine
DX: E78.5 Hyperlipidemia, unspecified (principal); F41.9 Anxiety disorder, unspecified
CPT/HCPCS: 36415; 80053; 84443; 85025